=== PATIENT | male | born 1995 | race Caucasian/White ===

== ENCOUNTER 2016-12-18 22:25 | Emergency (ER) | payer SELFPAY ==
[~2016-12-18] VITALS: Ht 175.3 cm; Wt 74.0 kg
[2016-12-18 22:28] VITALS: Ht 175.3 cm; Wt 74.0 kg
[2016-12-18] MEDS ORDERED: FAMOTIDINE 20 MG TAB PO STA (22:54)
[2016-12-18] MEDS ORDERED: SOD CHLORIDE 0.9% 1,000 ML IV STA (22:54)
[2016-12-18] MEDS ORDERED: LIDOCAINE/MYLANTA 40 ML BTL PO STA (22:54)
[2016-12-18] MEDS ORDERED: morphine 4 MG/ML VIAL IV STA (22:54)
[2016-12-18] MEDS ORDERED: METOCLOPRAMIDE 10 MG INJ IV STA (22:54)
[2016-12-18 23:31] LABS: ADD SCAN DIFF NO
[2016-12-18 23:32] LABS: BASOPHILS % 0.1 % (0.0-2.0); EOSINOPHILS # 0.1 10^3/ul (0.0-0.5); EOSINOPHILS % 0.4 % (0.0-7.0); HEMATOCRIT 45.9 % (42.0-52.0); HEMOGLOBIN 15.9 g/dl (14.0-18.0); LYMPHOCYTES # 1.7 10^3/ul (0.8-2.9); LYMPHOCYTES % 12.6 % (18.0-55.0); MEAN CORPUSCULAR HEMOGLOBIN 29.9 pg (29.0-33.0); MEAN CORPUSCULAR HGB CONC 34.6 g/dl (32.0-37.0); MEAN CORPUSCULAR VOLUME 86.4 fl (72.0-104.0); MEAN PLATELET VOLUME 10.5 fl (7.4-10.4); MONOCYTE # 0.9 10^3/ul (0.3-0.9); MONOCYTES % 6.7 % (0.0-13.0); NEUTROPHILS % 79.8 % (30.0-74.0); PLATELET COUNT 282 10^3/UL (140-415); RED BLOOD COUNT 5.31 10^6/ul (4.70-6.10); RED CELL DISTRIBUTION WIDTH 13.6 % (11.5-14.5); WHITE BLOOD COUNT 13.8 10^3/ul (4.8-10.8)
[2016-12-18 23:52] LABS: ALBUMIN 5.3 g/dl (3.3-4.9); ALBUMIN/GLOBULIN RATIO 1.51; BILIRUBIN,INDIRECT 0.7 mg/dl (0-1.1); BILIRUBIN,TOTAL 0.7 mg/dl (0.2-1.3); CREATININE 0.94 mg/dl (0.61-1.24); TOTAL PROTEIN 8.8 g/dl (6.1-8.1)
[2016-12-19] MEDS ORDERED: METO10TA92 PO (04:38)
[2016-12-19] MEDS ORDERED: FAMO-18 PO (04:38)
[2016-12-19 04:54] VITALS: BP 119/65; PULSE 101; RESP 21; TEMP 97.4
--- NOTE | 2016-12-19 06:12 | ERD ---
ER Documentation Chief Complaint Date/Time DATE: 12/19/16 TIME: 06:08 Chief Complaint upper abd pain radaiting to back x 2 days, vomiting today HPI 21-year-old male with no significant past medical history presenting with epigastric pain since yesterday with associated nausea and vomiting today. Vomitus is nonbloody and nonbilious. Pain is in the epigastrium, aching, burning, 10 out of 10, radiating to the right upper quadrant. He denies any associated fever, chills, diarrhea, constipation. He denies any drinking or radiation of pain into his chest. ROS All systems reviewed and are negative except as per history of present illness. Medications Home Meds Active Scripts Metoclopramide* (Reglan*) 10 Mg Tablet, 10 MG PO Q6 Y for NAUSEA AND/OR VOMITING , #10 TAB Prov:DERREK STEIN MD 12/19/16 Famotidine* (Pepcid*) 20 Mg Tablet, 20 MG PO BID for 14 Days, TAB Prov:DERREK STEIN MD 12/19/16 Allergies Allergies: Coded Allergies: No Known Allergy (Unverified , 12/18/16) PMhx/Soc Medical and Surgical Hx: pt denies Medical Hx, pt denies Surgical Hx History of Surgery: No Anesthesia Reaction: No Hx Neurological Disorder: No Hx Respiratory Disorders: No Hx Cardiac Disorders: No Hx Psychiatric Problems: No Hx Miscellaneous Medical Probl: No Hx Alcohol Use: No Hx Substance Use: No Hx Tobacco Use: No FmHx Family History: No diabetes Physical Exam Vitals Vital Signs Date Time Temp Pulse Resp B/P Pulse Ox O2 Delivery O2 Flow Rate FiO2 12/19/16 04:54 97.4 101 21 119/65 99 Room Air 12/18/16 22:28 98.3 126 20 128/65 98 Physical Exam Const: Well-appearing, nontoxic, no distress Head: Atraumatic Eyes: Normal Conjunctiva ENT: Normal External Ears, Nose and Mouth. Neck: Full range of motion..~ No meningismus. Resp: Clear to auscultation bilaterally Cardio: Regular rate and rhythm, no murmurs Abd: Soft, mild epigastric tenderness to palpation with no rebound or guarding, negative Gant sign, non distended. Normal bowel sounds Skin: No petechiae or rashes Back: No midline or flank tenderness Ext: No cyanosis, or edema Neur: Awake and alert Psych: Normal Mood and Affect Result Diagram: 12/18/16 2310 12/18/160 Results 24 hrs Laboratory Tests Test 12/18/16 23:10 White Blood Count 13.810^3/ul Red Blood Count 5.3110^6/ul Hemoglobin 15.9g/dl Hematocrit 45.9% Mean Corpuscular Volume 86.4fl Mean Corpuscular Hemoglobin 29.9pg Mean Corpuscular Hemoglobin Concent 34.6g/dl Red Cell Distribution Width 13.6% Platelet Count 96386^3/UL Mean Platelet Volume 10.5fl Neutrophils % 79.8% Lymphocytes % 12.6% Monocytes % 6.7% Eosinophils % 0.4% Basophils % 0.1% Nucleated Red Blood Cells % 0.0/100WBC Neutrophils # 11.010^3/ul Lymphocytes # 1.710^3/ul Monocytes # 0.910^3/ul Eosinophils # 0.110^3/ul Basophils # 0.010^3/ul Nucleated Red Blood Cells # 0.010^3/ul Sodium Level 141mmol/L Potassium Level 4.0mmol/L Chloride Level 102mmol/L Carbon Dioxide Level 25mmol/L Anion Gap 18 Blood Urea Nitrogen 17mg/dl Creatinine 0.94mg/dl Glucose Level 105mg/dl Calcium Level 10.0mg/dl Total Bilirubin 0.7mg/dl Direct Bilirubin 0.00mg/dl Indirect Bilirubin 0.7mg/dl Aspartate Amino Transf (AST/SGOT) 27IU/L Alanine Aminotransferase (ALT/SGPT) 37IU/L Alkaline Phosphatase 94IU/L Total Protein 8.8g/dl Albumin 5.3g/dl Globulin 3.50g/dl Albumin/Globulin Ratio 1.51 Lipase 37U/L Current Medications Medications (Trade) Dose Ordered Sig/Radhames Route PRN Reason Start Time Stop Time Status Last Admin Dose Admin Sodium Chloride (NS) 1,000 ml @ 1,000 mls/hr Q1H STAT IV 12/18/16 22:54 12/18/16 23:53 DC 12/18/16 23:09 Morphine Sulfate (morphine) 4 mg ONCE STAT IV 12/18/16 22:54 12/18/16 22:55 DC 12/18/16 23:10 Metoclopramide HCl (Reglan) 10 mg ONCE STAT IV 12/18/16 22:54 12/18/16 22:55 DC 12/18/16 23:10 Famotidine (Pepcid) 20 mg ONCE STAT PO 12/18/16 22:54 12/18/16 22:55 DC 12/18/16 23:10 Miscellaneous Medication (Gi Cocktail (2)) 40 ml ONCE STAT PO 12/18/16 22:54 12/18/16 22:55 DC 12/18/16 23:09 Procedures/[facility] Labs show mild leukocytosis, otherwise CBC and CMP are normal. Lipase is normal. Ultrasound of the right upper quadrant shows gallbladder sludge with no other evidence of acute cholecystitis Repeat abdominal exam: Abdomen nontender, nondistended, negative Gant's sign [facility] Patient is presenting with acute epigastric pain with nausea and vomiting. His vitals are stable and he is afebrile. Differential includes but is not limited to biliary colic, biliary obstruction, acute cholecystitis, pancreatitis, hepatitis, lower lobe pneumonia, gastritis, colitis, ureterolithiasis, pyelonephritis. I have a low suspicion for cardiac pathology. Labs were ordered to evaluate for above and were normal. Ultrasound of the abdomen ordered to evaluate gallbladder and showed gallbladder sludge with no other acute pathology. Patient was given IV fluids, pain medications, and anti- emetics. Upon reevaluation, his symptoms had significantly improved and he felt much better. He states he feels better enough to go home. At this time I suspect his symptoms are secondary to gastritis, however I cannot rule out early cholecystitis. Return precautions were discussed with the patient. If his symptoms worsen, he was advised to return to the ER immediately. A prescription for Reglan and Pepcid were given. Follow-up with primary care doctor in 1-2 days was recommended. Departure Diagnosis: Primary Impression: Epigastric abdominal pain Condition: Stable Patient Instructions: Epigastric Pain (Uncertain Cause) [facility] Usted se jonas hecho un examen mdico de control que le indica que no est en daniel condicin que requiera tratamiento urgente en el Departamento de Emergencia. Un estudio ms profundo y el tratamiento de contreras condicin pueden esperar sin ningn riesgo hasta que usted sea atendida/o en el consultorio de contreras mdico o daniel cl josé miguel. Es responsabilidad suya arreglar daniel prema para el seguimiento del javy. MANEJO DE CONDICIONES NO URGENTES EN EL FUTURO 1) Si usted tiene un mdico de atencin primaria: Usted debera llamar a contreras mdico de atencin primaria antes de venir al departamento de emergencia. Despus de las horas de consultorio, contreras doctor o contreras asociado/a est disponible por telfono. El mdico o enfermero de lluvia en el servicio telefnico puede asesorarle por michael medio para atender el problema, o javy contrario se puede programar daniel prema. 2) Si usted no tiene un mdico de atencin primaria: Llame al mdico o clnica de referencia que aparece abajo jamey las horas de consultorio para hacer daniel prema para que le vean. CLINICAS: [facility] [phone] [facility] [phone] [facility]. [facility] [phone] [facility]. [place] [id number] [phone] [facility]. [place] [phone] [facility]. [phone] Additional Instructions: Regresa a la nisha de emergencias si contreras solor esta empeorando. Bryon daniel prema con contreras medico priomarion en 2 foss. DERREK STEIN MD Dec 19, 2016 06:12
--- NOTE | 2016-12-19 06:32 | RADRPT ---
PROCEDURE: ULTRASOUND LIMITED ABDOMEN CLINICAL INDICATION: 21-year-old male with abdominal pain. TECHNIQUE: Multiple sonographic of the right upper quadrant of the abdomen were obtained. The imag es were reviewed on a PACS workstation. COMPARISON: None. FINDINGS: The pancreas is not well visualized secondary to overlying bowel gas. The liver displays normal echogenicity. The liver measures 14.0 cm in length. No evidence of intrah epatic biliary ductal dilatation is seen. The portal and hepatic veins are unremarkable. The gallbladder contains echogenic sludge. There is no evidence for shadowing stones. The gallblad jose angel wall thickness is within normal limits measuring 1.6 mm. The common bile duct measures 3.1 mm an d is not dilated. The right kidney displays normal echogenicity. The right kidney measures 10.7 cm in maximal length. No caliectasis or hydronephrosis is seen. There is minimal free fluid identified within the right upper quadrant. IMPRESSION: 1. Sludge within the gallbladder. 2. Minimal right upper quadrant free fluid. .Seng Garcia MD, Date Time Electronically viewed and signed by .Seng Garcia MD, on 12/19/2016 04:21 .M/
== END 2016-12-19 04:57 | disposition home or self-care (01) ==
LOC: FTE 22:25
DX: R10.13 Epigastric pain (principal); R11.2 Nausea with vomiting, unspecified
CPT/HCPCS: 76705; 80053; 83690; 85025; J2270; J2765; J7030; 36415; 96374; 96375